=== PATIENT | female | born 1995 | race Caucasian/White ===

== ENCOUNTER → 2020-01-06 | Outpatient (CLI) | payer OTHER ==
--- NOTE | 2020-01-06 15:27 | REP ---
Chest x-ray: Two views. History: Shortness of breath. Findings: The lungs are well inflated and clear. Pleural angles are sharp. Heart is not enlarged. Pulmonary vasculature is not increased. There is a mild S-shaped thoracic scoliotic curve. No other bony abnormality is seen. Impression: No active disease. Electronically Signed by Jose Yusuf MD 01/06/2020 03:19 P
== END ==
LOC: M LRY 12:37
PROVIDERS: ATTEND Nurse Practitioner Family
DX: R06.02 Shortness of breath (principal)

== ENCOUNTER → 2020-01-06 | Outpatient (REF) | payer OTHER | LOC: M SFHCLERA 14:12 | PROVIDERS: ATTEND Nurse Practitioner Family | DX: R06.02 Shortness of breath (principal) | CPT/HCPCS: 87486; 87581; 87633; 87798; U0002 ==